=== PATIENT | male | born 1955 | race Caucasian/White ===

== ENCOUNTER 2023-08-22 12:00 | Day surgery (SDC) | payer OTHER ==
--- NOTE | 2023-08-17 13:28 | TEE ---
TRANSESOPHAGEAL ECHOCARDIOGRAM REPORT CARDIOLOGY DEPARTMENT DATE OF STUDY: 08/17/2023 HEIGHT: 5'7" WEIGHT: 200 lbs DIAGNOSIS: MITRAL VALVE REGURGITATION GENERAL SURGEON COMMENTS: JOAN CARDIAC HISTORY: CATHERIZATION: SURGERY: PROSTHETIC VALVE: PACEMAKER: 2 DIMENSIONAL ASSESSMENT: RIGHT ATRIUM: NORMAL LEFT ATRIUM: MILD DILATED RIGHT VENTRICLE: NORMAL LEFT VENTRICLE: NORMAL TRICUSPID VALVE: MILD TRICUSPID REGURGITATION MITRAL VALVE: MODERATE MITRAL REGURGITATION PULMONIC VALVE: NORMAL AORTIC VALVE: NORMAL PERICARDIAL EFFUSION: NONE AORTIC ROOT: NORMAL EJECTION FRACTION: LEFT VENTRICULAR WALL MOTION: NORMAL DOPPLER/COLOR FLOW: NOT ACCESSED COMMENTS: 1. MODERATE CENTRAL MITRAL REGURGITATION (VENA CONTRACTA IS 0.5 CENTIMETERS) 2. NORMAL LEFT ATRIAL APPENDAGE 3. MILD DILATED LEFT ATRIUM 4. MILD TRICUSPID REGURGITATION TECHNOLOGIST: RADHA MOHAMUD
--- NOTE | 2023-08-21 14:46 | EKG ---
Test Date: 2023-08-18 Test Time: 15:01:46 [employer]almer: ANJELICA MEASUREMENT RESULTS: Intervals: Rate: 65 NH: 214 QRSD: 170 QT: 476 QTc: 495 [place]: P: 64 NH: 214 QRS: 60 T: 241 INTERPRETIVE STATEMENTS: Sinus rhythm with 1st degree AV block Left bundle branch block Abnormal ECG Compared to ECG 10/13/2021 12:42:02 First degree AV block now present Left bundle-branch block now present Electronically Signed On 08-21-23 14:40:02 CDT by Chong Dietz
[2023-08-22] MEDS: NA CHLORIDE 0.9% 500 ML ONE (13:08)
[2023-08-22] MEDS ORDERED: HEPARIN 5000 UNIT/ML 1 ML VIAL ONE (13:23)
[2023-08-22] MEDS ORDERED: HEPA 1000U/500MLS 2,000 UNIT/1,000 ML BAG IV ONE (13:23)
[2023-08-22] MEDS ORDERED: HEPARIN 10,000 UNIT/10 ML VIAL IV ONE (13:24)
[2023-08-22] MEDS ORDERED: VERAPAMIL HCL 10 MG/4 ML VIAL IV ONE (13:25)
[2023-08-22] MEDS ORDERED: MIDAZOLAM HCL 2 MG/2 ML INJ ONE (13:25)
[2023-08-22] MEDS ORDERED: FENTANYL CITR 100 MCG/2 ML ONE (13:25)
[2023-08-22] MEDS ORDERED: NITROGLYCERIN/D5W 50 MG/250 ML BTL IV ONE (13:26)
[2023-08-22] MEDS ORDERED: TICAGRELOR 90 MG TABLET PO ONE (13:38)
[2023-08-22] MEDS ORDERED: LIDOCAINE 1% 20 ML MDV ONE (13:38)
[2023-08-22] MEDS ORDERED: CLOPIDOGREL 75 MG TABLET ONE (13:38)
[2023-08-22] MEDS ORDERED: ASPIRIN 325 MG TAB ONE (13:39)
[2023-08-22 17:35] VITALS: O2SAT 97
[2023-08-22 18:04] VITALS: BP 120/84
--- NOTE | 2023-08-23 02:38 | OP ---
Date of Procedure: 08/22/2023 Surgeon: PRATIMA BEARDEN Procedures Performed: 1.Selective coronary angiogram with bypass graft study. 2.Left heart catheterization. 3.PCI of the proximal left circumflex restenosis, used 5 x 60 mm Synergy drug-eluting stent. 4.Carotid angiogram with closure device, 6-Israeli Angio-Seal was deployed. Indication: Unstable angina. Access: Right common femoral artery 6-Israeli, closed with 6-Israeli Angio-Seal. Complications: None. Bleeding: Less than 50 mL. Anesthesia: Total sedation time was 1 hour. Description Of Procedure: After risks, benefits, and alternatives were explained, the patient agreed to procedure and signed informed consent. The patient was brought into cardiac catheterization [facility], prepped and draped in usual sterile fashion. Then, I accessed right common femoral artery us ing micropuncture kit, ultrasound guidance, fluoroscopy, placed 6-Israeli [place] sheath and took a 6 -Israeli JL4 catheter into the aortic root, engaged left main, took standard views. Next, exchanged f or a 6-Israeli JR4 catheter across aortic valve, measured LVEDP. Pullback did not record any gradient and then engaged the RCA and took standard views, engaged the SVG graft to the ramus, took standard views and then engaged the JONES to LAD and took standard views and then gave systemic heparin to assu re ACT level above 250 and then took a 6-Israeli EBU3.5 guide into the aortic root, engaged left main, took short run-through wire into the left main, then to the left circumflex, pre-dilated the lesion with 2.5 balloon at high pressure and then placed 2.75 x 60 mm Synergy drug-eluting stent with excell ent expansion, 0% residual stenosis and MAYNOR-3 flow at the end. The patient was loaded with Plavix a s well and we took aspirin today. Then, removed the wire and the guide and the sheath. A 6-Israeli A ngio-Seal was used for closure after carotid angiogram was obtained and with good hemostasis. The pa tient was sent to recovery in stable condition. Findings: 1.Left main normal. 2.LAD, ostial, 100% occluded. 3.Ramus intermedius, ostially 99% occluded. 4.Left circumflex; proximal 80% stenosis, status post successful PCI as above. 5.RCA; proximal 50% to 60%, distal 50% stenosis. Graft Study: 1.Patent JONES to LAD. 2.Patent SVG graft to ramus intermedius. 3.Elevated LVEDP at 25 mmHg. Conclusion: 1.Severe [place] coronary artery disease with patent JONES to LAD, patent SVG graft to ramus, and abhishek re proximal left circumflex stenosis, status post successful PCI as above. 2.Moderate RCA stenosis, which will be monitored with a stress test in 6 months and I recommend to r epeat his echo in about 6 weeks after this PCI and to be sent home on aspirin, Plavix, and high-dose statin. SR/MODL Voice ID: [id number] Report ID: [id number]
== END 2023-08-22 17:57 | disposition home or self-care (01) ==
LOC: CCL 12:00
PROVIDERS: ATTEND Internal Medicine
DX: I25.110 Atherosclerotic heart disease of native coronary artery with unstable angina pectoris (principal); I25.82 Chronic total occlusion of coronary artery; I34.0 Nonrheumatic mitral (valve) insufficiency; I11.0 Hypertensive heart disease with heart failure; I50.22 Chronic systolic (congestive) heart failure; I44.0 Atrioventricular block, first degree; I44.7 Left bundle-branch block, unspecified; I73.9 Peripheral vascular disease, unspecified; E78.2 Mixed hyperlipidemia; I15.9 Secondary hypertension, unspecified; K21.9 Gastro-esophageal reflux disease without esophagitis; Z95.1 Presence of aortocoronary bypass graft; Z87.891 Personal history of nicotine dependence; Z79.899 Other long term (current) drug therapy; Z82.49 Family history of ischemic heart disease and other diseases of the circulatory system
CPT/HCPCS: 93005; 93312; 85347 ×2; 93459; 76937; C1893; C1760; Q9967; C1725; C9600; J2001; J2250; J3010; J7040; 93458; 99152; 99153; J1644